=== PATIENT | female | born 1955 | race Two or more races ===

== ENCOUNTER 2018-10-02 15:02 | Emergency (ER) | payer SELFPAY ==
[~2018-10-02] VITALS: Ht 157.5 cm; Wt 70.0 kg
[2018-10-02] MEDS ORDERED: TRAMADOL 50MG TABLET PO ONE (16:00)
[2018-10-02 18:15] VITALS: BP 128/61
== END 2018-10-02 18:19 | disposition home or self-care (01) ==
LOC: ER 15:02
DX: S16.1XXA Strain of muscle, fascia and tendon at neck level, initial encounter (principal); R07.9 Chest pain, unspecified; J44.9 Chronic obstructive pulmonary disease, unspecified; V43.62XA Car passenger injured in collision with other type car in traffic accident, initial encounter; Y93.89 Activity, other specified; Y92.410 Unspecified street and highway as the place of occurrence of the external cause; Z88.0 Allergy status to penicillin
CPT/HCPCS: 71045; 71120; 72040; 73030; 93005; 99283